=== PATIENT | male | born 1970 | race Caucasian/White ===

== ENCOUNTER 2020-12-25 19:39 | Inpatient (IN) ==
[2020-12-25 20:27] LABS: Hematocrit 44.2 % (37.5-50.1); Hemoglobin 14.3 g/dL (12.9-16.9); Immature Granulocytes % 0.5 % (0-4); Lymphocytes # 0.5 K/mcL (0.6-4.6); Lymphocytes % 11.7 %; Mean Corpuscular HGB Conc 32.4 g/dL (31.6-35.5); Mean Corpuscular Hemoglobin 26.1 pg (28.0-33.3); Mean Corpuscular Volume 80.7 fL (83.0-100.0); Mean Platelet Volume 10.5 fL (9.4-12.4); Monocytes # 0.1 K/mcL (0.0-1.3); Monocytes % 2.6 %; Neutrophils # 3.3 K/mcL (1.6-8.9); Platelet Count 227 K/mcL (140-400); Red Blood Count 5.48 M/mcL (4.19-5.50); Red Cell Distribution Width 20.3 % (11.5-14.5); Segmented Neutrophils % 85.2 %; White Blood Count 3.8 K/mcL (4.3-11.1)
[2020-12-25 20:29] LABS: VBG HCO3 23 mEq/L (21-27); VBG PCO2 37 mmHg (41-51); VBG PH 7.39 pH Units (7.32-7.42); VBG PO2 41 mmHg (25-50)
[2020-12-25 20:49] LABS: BUN/Creatinine Ratio 15 (6-26); Blood Urea Nitrogen 14 mg/dL (6-20); Calcium 8.3 mg/dL (8.6-10.3); Carbon Dioxide 21 mEq/L (23-29); Chloride 102 mEq/L (98-107); Glucose 118 mg/dL (70-105); Osmolality,Calculated 282 (280-300); Potassium 4.1 mEq/L (3.5-5.1); Sodium 135 mEq/L (136-145); eGFR For African Americans > 60 (> 60); eGFR For Non-African Americans > 60 (> 60)
[2020-12-25 20:50] LABS: Troponin I 0.03 ng/mL (< 0.04)
[2020-12-25 21:00] LABS: Influenza A PCR Negative (Negative); Influenza B PCR Negative (Negative); Resp. Syncytial Virus PCR Negative (Negative)
[2020-12-25 21:03] LABS: SARS-CoV-2 by PCR (In House) Positive (Negative)
[2020-12-25] MEDS ORDERED: Naloxone 0.4 MG/ML INJ IVP PRN (23:31)
[2020-12-25] MEDS ORDERED: *HR* Promethazine 25 MG/ML VIAL IM PRN (23:31)
[2020-12-25] MEDS ORDERED: Ondansetron 4 MG/2 ML VIAL IVP PRN (23:31)
[2020-12-25] MEDS ORDERED: Melatonin 3 MG TABLET PO PRN (23:31)
[2020-12-25] MEDS ORDERED: Acetaminophen 325 MG TABLET PO PRN (23:31)
[2020-12-25] MEDS ORDERED: *HR* HYDROcodone/Acet 5/325 mg TABLET PO PRN (23:31)
[2020-12-26 00:42] LABS: Alanine Aminotransferase 42 Units/L (7-52); Albumin 3.3 g/dL (3.5-5.7); Albumin/Globulin Ratio 0.9 (1.1-2.2); Alkaline Phosphatase 68 Units/L (34-104); Aspartate Amino Transferase 59 Units/L (13-39); Bilirubin,Direct 0.5 mg/dL (0.0-0.2); Bilirubin,Indirect 0.2 mg/dL (0.0-1.0); Bilirubin,Total 0.7 mg/dL (0.3-1.0); Globulin 3.7 g/dL (2.4-3.5)
[2020-12-26] MEDS ORDERED: Saline Nasal Spray 44 ML BOTTLE NS PRN (02:46)
[2020-12-26] MEDS: *HR* Enoxaparin 40 MG/0.4 ML SYRINGE SQ SCH (05:51)
[2020-12-26 06:15] LABS: Basophils % 0.3 %; Hematocrit 44.9 % (37.5-50.1); Hemoglobin 14.3 g/dL (12.9-16.9); Immature Granulocytes % 0.3 % (0-4); Lymphocytes # 0.4 K/mcL (0.6-4.6); Lymphocytes % 11.6 %; Mean Corpuscular HGB Conc 31.8 g/dL (31.6-35.5); Mean Corpuscular Hemoglobin 26.2 pg (28.0-33.3); Mean Corpuscular Volume 82.2 fL (83.0-100.0); Mean Platelet Volume 10.2 fL (9.4-12.4); Monocytes # 0.1 K/mcL (0.0-1.3); Monocytes % 1.9 %; Neutrophils # 2.7 K/mcL (1.6-8.9); Platelet Count 235 K/mcL (140-400); Red Blood Count 5.46 M/mcL (4.19-5.50); Red Cell Distribution Width 20.6 % (11.5-14.5); Segmented Neutrophils % 85.9 %; White Blood Count 3.1 K/mcL (4.3-11.1)
[2020-12-26 06:26] LABS: INR 1.3; Prothrombin Time 15.1 Seconds (9.4-12.1)
[2020-12-26 06:46] LABS: D-Dimer 937 ng/mLFEU (0-500); Fibrinogen > 1000 mg/dL (169-393)
[2020-12-26] MEDS: Dexamethasone Sodium Phos/PF 10 MG/ML VIAL IVP SCH (09:33)
[2020-12-26] MEDS: Aspirin Enteric Coated 81 MG Tablet PO SCH (09:33)
[2020-12-26 10:21] LABS: Alanine Aminotransferase 36 Units/L (7-52); Albumin 3.6 g/dL (3.5-5.7); Albumin/Globulin Ratio 1.2 (1.1-2.2); Alkaline Phosphatase 72 Units/L (34-104); Aspartate Amino Transferase 44 Units/L (13-39); BUN/Creatinine Ratio 18 (6-26); Bilirubin,Total 0.4 mg/dL (0.3-1.0); Blood Urea Nitrogen 15 mg/dL (6-20); Calcium 8.6 mg/dL (8.6-10.3); Carbon Dioxide 22 mEq/L (23-29); Chloride 103 mEq/L (98-107); Ferritin 1108 ng/mL (20-250); Globulin 2.9 g/dL (2.4-3.5); Glucose 167 mg/dL (70-105); Lactate Dehydrogenase 630 Units/L (140-271); Magnesium 2.1 mg/dL (1.6-2.6); Osmolality,Calculated 285 (280-300); Potassium 4.5 mEq/L (3.5-5.1); Sodium 135 mEq/L (136-145); Total Protein 6.5 g/dL (6.4-8.9); eGFR For African Americans > 60 (> 60); eGFR For Non-African Americans > 60 (> 60)
[2020-12-26] MEDS ORDERED: Benzonatate 100 MG CAPSULE PO PRN (10:40)
[2020-12-26 10:48] LABS: C-Reactive Protein 292 mg/L (Less than 10)
[2020-12-26] MEDS: Cefepime HCl 2,000 MG in Water for inj. (sterile) 20 ML IVP SCH ×2 (11:49→20:06)
[2020-12-26] MEDS: Sucralfate 1 GM TABLET PO SCH ×3 (11:49→20:39)
[2020-12-26] MEDS: Furosemide 20 MG/2 ML VIAL IVP SCH (11:49)
[2020-12-26] MEDS: Gabapentin 300 MG CAPSULE PO SCH ×3 (11:49→20:38)
[2020-12-26] MEDS: Azithromycin 500 MG in 0.9 % Sodium Chloride 250 ML IVPB SCH (11:50)
[2020-12-26] MEDS ORDERED: Fluticasone Propionate Nasal 50 MCG/SPRAY BOTTLE NS PRN (17:31)
[2020-12-26] MEDS: diazePAM 5 MG TABLET PO PRN (20:39)
[2020-12-26] MEDS ORDERED: *HR* Buprenorphine HCl 8 MG TAB.SUBL SL SCH (21:00)
[2020-12-26] MEDS: *HR* Buprenorphine HCl 2 MG SUBLINGUAL TABLET SL SCH (21:44)
[2020-12-27] MEDS: Cefepime HCl 2,000 MG in Water for inj. (sterile) 20 ML IVP SCH ×3 (03:49→19:12)
[2020-12-27] MEDS: *HR* Enoxaparin 40 MG/0.4 ML SYRINGE SQ SCH (06:18)
[2020-12-27] MEDS: Sucralfate 1 GM TABLET PO SCH ×4 (06:30→21:10)
[2020-12-27 08:32] LABS: Basophils % 0.1 %; Hematocrit 43.6 % (37.5-50.1); Hemoglobin 14.1 g/dL (12.9-16.9); Immature Granulocytes % 0.6 % (0-4); Lymphocytes # 0.6 K/mcL (0.6-4.6); Lymphocytes % 7.7 %; Mean Corpuscular HGB Conc 32.3 g/dL (31.6-35.5); Mean Corpuscular Hemoglobin 26.4 pg (28.0-33.3); Mean Corpuscular Volume 81.6 fL (83.0-100.0); Mean Platelet Volume 10.3 fL (9.4-12.4); Monocytes # 0.4 K/mcL (0.0-1.3); Monocytes % 4.7 %; Platelet Count 350 K/mcL (140-400); Red Blood Count 5.34 M/mcL (4.19-5.50); Red Cell Distribution Width 20.8 % (11.5-14.5); Segmented Neutrophils % 86.9 %
[2020-12-27 08:35] LABS: Neutrophils # 7.1 K/mcL (1.6-8.9); White Blood Count 8.2 K/mcL (4.3-11.1)
[2020-12-27] MEDS: Aspirin Enteric Coated 81 MG Tablet PO SCH (09:59)
[2020-12-27] MEDS: Gabapentin 300 MG CAPSULE PO SCH ×3 (10:00→19:13)
[2020-12-27] MEDS: Dexamethasone Sodium Phos/PF 10 MG/ML VIAL IVP SCH (10:04)
[2020-12-27] MEDS: Furosemide 20 MG/2 ML VIAL IVP SCH (10:07)
[2020-12-27] MEDS: diazePAM 5 MG TABLET PO PRN (10:07)
[2020-12-27] MEDS: *HR* Buprenorphine HCl 8 MG TAB.SUBL SL SCH ×2 (10:08→12:14)
[2020-12-27] MEDS: Azithromycin 500 MG in 0.9 % Sodium Chloride 250 ML IVPB SCH (10:08)
[2020-12-27] MEDS: *HR* Buprenorphine HCl 2 MG SUBLINGUAL TABLET SL SCH (20:12)
[2020-12-28] MEDS: Cefepime HCl 2,000 MG in Water for inj. (sterile) 20 ML IVP SCH ×2 (03:01→11:12)
[2020-12-28] MEDS: *HR* Enoxaparin 40 MG/0.4 ML SYRINGE SQ SCH (05:47)
[2020-12-28 06:56] VITALS: BP 126/88; PULSE 86; TEMP 97.6
[2020-12-28] MEDS: Sucralfate 1 GM TABLET PO SCH ×3 (07:41→15:34)
[2020-12-28] MEDS: Aspirin Enteric Coated 81 MG Tablet PO SCH (07:41)
[2020-12-28] MEDS: Gabapentin 300 MG CAPSULE PO SCH ×2 (07:41→15:34)
[2020-12-28] MEDS: Furosemide 20 MG/2 ML VIAL IVP SCH (07:42)
[2020-12-28] MEDS: *HR* Buprenorphine HCl 8 MG TAB.SUBL SL SCH ×2 (07:42→11:12)
[2020-12-28 08:09] LABS: Hematocrit 41.2 % (37.5-50.1); Hemoglobin 13.3 g/dL (12.9-16.9); Mean Corpuscular HGB Conc 32.3 g/dL (31.6-35.5); Mean Corpuscular Hemoglobin 26.2 pg (28.0-33.3); Mean Corpuscular Volume 81.3 fL (83.0-100.0); Platelet Count 361 K/mcL (140-400); Red Blood Count 5.07 M/mcL (4.19-5.50); Red Cell Distribution Width 19.9 % (11.5-14.5); White Blood Count 6.4 K/mcL (4.3-11.1)
[2020-12-28 08:18] LABS: BUN/Creatinine Ratio 37 (6-26); Blood Urea Nitrogen 25 mg/dL (6-20); Calcium 8.6 mg/dL (8.6-10.3); Carbon Dioxide 26 mEq/L (23-29); Chloride 104 mEq/L (98-107); Glucose 147 mg/dL (70-105); Osmolality,Calculated 291 (280-300); Potassium 4.4 mEq/L (3.5-5.1); Sodium 137 mEq/L (136-145); eGFR For African Americans > 60 (> 60); eGFR For Non-African Americans > 60 (> 60)
[2020-12-28] MEDS ORDERED: Dexamethasone Sodium Phos/PF 10 MG/ML VIAL IVP SCH (09:00)
[2020-12-28 09:40] LABS: Lymphocytes # 0.4 K/mcL (0.6-4.6); Platelet Estimate Normal (Normal)
[2020-12-28] MEDS: Azithromycin 500 MG in 0.9 % Sodium Chloride 250 ML IVPB SCH (11:12)
[2020-12-28 11:27] VITALS: O2SAT 88
== END 2020-12-28 16:30 | disposition home health service (06) | DRG 177 ==
LOC: 2NENU 19:39 → EMEROOARM 19:39 → SUATTDRO 23:45 → 2NENU 12-26 01:30
PROVIDERS: ADMIT Family Medicine; ATTEND Internal Medicine